=== PATIENT | male | born 1945 | race Caucasian/White ===

== ENCOUNTER 2018-08-29 11:35 | Inpatient (IN) | payer MEDICARE, OTHER ==
[~2018-08-29] VITALS: Ht 188 cm; Wt 102.0 kg
[~2018-08-29 11:35] MED LIST: ALLO300T2 PO; AMLO-362 PO; ASPI-611 PO; ATOR10TA87 PO; CHOL100040 PO; MAGN250T29 PO; atropine 0.1mg/ml 10ml syringe ONE
[2018-08-29] MEDS ORDERED: atropine 1 MG/1 ML vial IV ONE (11:45)
[2018-08-29] MEDS ORDERED: normal saline 1000ML IV soln IVB ONE (11:45)
[2018-08-29 12:05] LABS: BASOPHILS % (AUTO) 0.5 % (0-1); EOSINOPHILS # (AUTO) 0.1 X10'3 (0-0.9); EOSINOPHILS % (AUTO) 1.2 % (0-6); HEMATOCRIT 38.1 % (42.0-52.0); HEMOGLOBIN 12.8 g/dl (14.0-17.9); LYMPHOCYTES # (AUTO) 0.9 X10'3 (1.1-4.8); LYMPHOCYTES % (AUTO) 14.2 % (21-51); MEAN CORPUSCULAR HEMOGLOBIN 33.6 PG (27.0-31.0); MEAN CORPUSCULAR HGB CONC 33.7 g/dL (33.0-36.5); MEAN CORPUSCULAR VOLUME 99.8 FL (78-98); MEAN PLATELET VOLUME 9.5 FL (7.4-10.4); MONOCYTES # (AUTO) 0.4 X10'3 (0-0.9); MONOCYTES % (AUTO) 6.9 % (2-12); NEUTROPHILS # (AUTO) 4.7 X10'3 (1.8-7.7); NEUTROPHILS % (AUTO) 77.2 % (42-75); PLATELET COUNT 137 X10'3 (140-440); RED BLOOD COUNT 3.82 X10'6 (4.70-6.10); RED CELL DISTRIBUTION WIDTH 14.6 % (11.5-14.5); WHITE BLOOD COUNT 6.1 X10'3 (4.5-11.0)
--- NOTE | 2018-08-29 12:07 | NUR ---
no change from atropine,[place] 27bpm palp,Dr. Del Valle made aware,said she contacted Dr. Capellan.
[2018-08-29 12:20] LABS: ALANINE AMINOTRANSFERASE 112 U/L (12-78); ALBUMIN 3.4 G/DL (3.4-5.0); ALBUMIN/GLOBULIN RATIO 1.1 (1.1-1.5); ALKALINE PHOSPHATASE 67 IU/L (46-116); ANION GAP 6 (8-16); ASPARTATE AMINO TRANSFERASE 56 U/L (10-37); BILIRUBIN,TOTAL 0.7 MG/DL (0.1-1.0); BLOOD UREA NITROGEN 28 MG/DL (7-18); BUN/CREATININE RATIO 18.5 (5.4-32.0); CALCIUM 8.8 MG/DL (8.5-10.1); CHLORIDE 109 MMOL/L (99-107); CREATININE 1.51 MG/DL (0.60-1.10); GLUCOSE 93 MG/DL (70-104); POTASSIUM 4.2 MMOL/L (3.5-5.1); SODIUM 141 MMOL/L (135-145); TOTAL PROTEIN 6.5 G/DL (6.4-8.2); eGFR 45 ML/MIN
[2018-08-29 12:23] LABS: INR 1.1 INR; PARTIAL THROMBOPLASTIN TIME 28 SECONDS (22-32)
--- NOTE | 2018-08-29 12:28 | NUR ---
1245DR. LEE SPOKE TO DR. RIOS ABOUT THIS PT..... MECHANIC CALLED AND STATED THAT THEY PICKING PT UP AT 1245
[2018-08-29] MEDS ORDERED: ATOR40TA72 PO (12:33)
[2018-08-29] MEDS ORDERED: cefazolin/dext.iso 2gm/100ml 100 ML IV ONE ×2 (13:00→13:38)
[2018-08-29] MEDS ORDERED: CARV3.122 PO (13:10)
[2018-08-29] MEDS: normal saline 1000ml 1,000 ML IV SCH ×2 (13:19→23:36)
[2018-08-29] MEDS ORDERED: morphine 2 MG/ML inj. syringe IV PRN ×2 (13:20→22:10)
[2018-08-29] MEDS ORDERED: HYDROcodone/acetaminophen 5mg/325mg tablet PO PRN (13:20)
[2018-08-29] MEDS ORDERED: magnesium hydroxide 30ml (MOM) UD suspension PO PRN (13:20)
[2018-08-29] MEDS ORDERED: mag hydrox/Alum hydrox/simeth 30ml oral suspension PO PRN (13:20)
[2018-08-29] MEDS ORDERED: ondansetron/PF 4mg/2ml inj IV PRN (13:20)
[2018-08-29] MEDS ORDERED: acetaminophen 325mg tablet PO PRN (13:20)
[2018-08-29] MEDS ORDERED: fentaNYL/PF 50MCG/1 ML 2ML syringe ONE (13:42)
[2018-08-29] MEDS ORDERED: midazolam 2 mg/2 ml injection ONE (13:43)
[2018-08-29] MEDS ORDERED: lidocaine 1%/epinephrine 1:100,000 injection 50ml vial ONE (13:43)
[2018-08-29] MEDS ORDERED: ceFAZolin 1000mg inj ONE (14:00)
--- NOTE | 2018-08-29 15:02 | NUR ---
Rec patient from rn cardiac cath in stable condition. Transferred to bed from [facility]. left arm in sling with dressing over pacemaker site. Clean dry and intact. Pt awake, alert and oriented. vss. Enc'd deep breathing, sats 91-92%. Given ice chips and some water. Missing his belongings, call placed to [facility] in rn cardiac cath, stated he would look for them. Iv ancef hanging on arrival, will finish infusing. New orders noted.
[2018-08-29 15:05] VITALS: BP 176/77
[2018-08-29 15:30] VITALS: BP 171/80
[2018-08-29] MEDS ORDERED: hydrALAZINE 20mg/ml inj. IV PRN (17:05)
[2018-08-29 17:45] VITALS: BP 165/94
--- NOTE | 2018-08-29 18:03 | NUR ---
Belongings in room and pt reports all there. Having difficulty urinating, up to bathroom and feels bladder is becoming full. Will obtain st cath order if necessary.
[2018-08-29 19:00] VITALS: BP 168/94
--- NOTE | 2018-08-29 19:45 | NUR ---
bladder scan showed 750cc. Pt unable to void. Straight cath- 700cc out
[2018-08-29] MEDS ORDERED: cephalexin 500mg capsule PO SCH (20:00)
[2018-08-29] MEDS: ceFAZolin 1GM/D5W- ADD-VANTAGE 50 ML IV SCH (22:02)
[2018-08-29] MEDS: HYDROcodone/acetaminophen 10/325mg tab PO PRN (22:42)
[2018-08-29 23:00] VITALS: BP 157/85
[2018-08-30 03:00] VITALS: BP 160/83
[2018-08-30] MEDS: HYDROcodone/acetaminophen 10/325mg tab PO PRN (04:17)
[2018-08-30] MEDS: ceFAZolin 1GM/D5W- ADD-VANTAGE 50 ML IV SCH (05:59)
[2018-08-30 06:00] VITALS: BP 126/81
--- NOTE | 2018-08-30 06:41 | NUR ---
Patient in room U 3024. I have received report from TIANA Cloud and had the opportunity to ask questions and assume patient care. Addendum: 08/30/18 at 0642 by Gavin Singer RN report from TIANA Hernandez
[2018-08-30] MEDS ORDERED: CEPH500C5 PO (07:30)
[2018-08-30] MEDS ORDERED: carvedilol 6.25mg tablet PO SCH (08:00)
[2018-08-30] MEDS ORDERED: enoxaparin 40mg/0.4ml syringe SUBCUT SCH (08:00)
[2018-08-30] MEDS ORDERED: CARV6.253 PO (10:16)
[2018-08-30 11:00] VITALS: BP 158/82
--- NOTE | 2018-08-30 11:08 | NUR ---
IV and tele are out. All patient DC papers and education done. Just waiting for to pick him up. Addendum: 08/30/18 at 1121 by Gavin Singer RN educated to take pulse and BP for beta-zully
--- NOTE | 2018-08-30 11:16 | NUR ---
Meds called in to [facility].
[2018-08-30] MEDS ORDERED: lisinopril 10 MG tablet PO SCH (21:00)
== END 2018-08-30 11:15 | disposition home or self-care (01) | DRG 226 ==
LOC: ER 11:36 → ED HOLD 13:54 → PCU 3S 14:56 → CMPBEDREQ 19:31
PROVIDERS: ADMIT Family Medicine; ATTEND Family Medicine
PROC: 0JH609Z Insertion of Cardiac Resynchronization Defibrillator Pulse Generator into Chest Subcutaneous Tissue and Fascia, Open Approach (ICD-10-PCS; principal; 2018-08-29)
PROC: 02HK3KZ Insertion of Defibrillator Lead into Right Ventricle, Percutaneous Approach (ICD-10-PCS; 2018-08-29)
PROC: 02H63KZ Insertion of Defibrillator Lead into Right Atrium, Percutaneous Approach (ICD-10-PCS; 2018-08-29)
DX: I44.2 Atrioventricular block, complete (principal); I21.A1 Myocardial infarction type 2; I42.9 Cardiomyopathy, unspecified; I50.22 Chronic systolic (congestive) heart failure; I25.10 Atherosclerotic heart disease of native coronary artery without angina pectoris; I11.0 Hypertensive heart disease with heart failure; E78.00 Pure hypercholesterolemia, unspecified; E78.5 Hyperlipidemia, unspecified; G47.33 Obstructive sleep apnea (adult) (pediatric); M10.9 Gout, unspecified; Z95.0 Presence of cardiac pacemaker; Z79.82 Long term (current) use of aspirin; Z86.73 Personal history of transient ischemic attack (TIA), and cerebral infarction without residual deficits
CPT/HCPCS: 33249; 36415; 71045; 80053; 83880; 84443; 84484; 85025; 85610; 85730; 93005; 93306; 96361; 96374; 99152; 99153; 99291; A4565; A4620; C1721; C1785; C1895; G0378; J0360; J0461; J0690; J2250; J2270; J2405; J3010; J3490; J7030

== ENCOUNTER 2020-06-04 15:05 | Emergency (ER) | payer MEDICARE, OTHER ==
[~2020-06-04] VITALS: Ht 185.4 cm; Wt 100.0 kg
[~2020-06-04 15:05] MED LIST changes: -AMLO-362 PO; -ATOR10TA87 PO; +ATOR40TA72 PO; +CARV6.253 PO; -CHOL100040 PO; -MAGN250T29 PO; -atropine 0.1mg/ml 10ml syringe ONE
[2020-06-04 16:23] VITALS: BP 166/99
[2020-06-04 16:35] LABS: BASOPHILS % (AUTO) 0.1 % (0-1); EOSINOPHILS % (AUTO) 0 % (0-6); HEMATOCRIT 45.7 % (42.0-52.0); HEMOGLOBIN 15.2 g/dl (14.0-17.9); LYMPHOCYTES # (AUTO) 0.7 X10'3 (1.1-4.8); LYMPHOCYTES % (AUTO) 6.8 % (21-51); MEAN CORPUSCULAR HEMOGLOBIN 33.2 PG (27.0-31.0); MEAN CORPUSCULAR HGB CONC 33.3 g/dL (33.0-36.5); MEAN CORPUSCULAR VOLUME 99.9 FL (78-98); MONOCYTES # (AUTO) 0.5 X10'3 (0-0.9); MONOCYTES % (AUTO) 5.1 % (2-12); NEUTROPHILS # (AUTO) 8.9 X10'3 (1.8-7.7); PLATELET COUNT 183 X10'3 (140-440); RED BLOOD COUNT 4.58 X10'6 (4.70-6.10); RED CELL DISTRIBUTION WIDTH 13.9 % (11.5-14.5); WHITE BLOOD COUNT 10.1 X10'3 (4.5-11.0)
[2020-06-04 16:46] LABS: ALANINE AMINOTRANSFERASE 20 U/L (12-78); ALBUMIN 4.5 G/DL (3.4-5.0); ALBUMIN/GLOBULIN RATIO 1.1 (1.1-1.5); ALKALINE PHOSPHATASE 50 IU/L (46-116); ANION GAP 14 (8-16); ASPARTATE AMINO TRANSFERASE 22 U/L (10-37); BILIRUBIN,TOTAL 1.1 MG/DL (0.1-1.0); BLOOD UREA NITROGEN 16 MG/DL (7-18); BUN/CREATININE RATIO 11.3 (5.4-32.0); CALCIUM 9.3 MG/DL (8.5-10.1); CHLORIDE 109 MMOL/L (99-107); CREATININE 1.41 MG/DL (0.60-1.10); GLUCOSE 118 MG/DL (70-104); SODIUM 146 MMOL/L (135-145); TOTAL CARBON DIOXIDE 23.3 MMOL/L (24-32); TOTAL PROTEIN 8.5 G/DL (6.4-8.2); eGFR 49 ML/MIN
[2020-06-04 16:47] LABS: POTASSIUM 4.2 MMOL/L (3.5-5.1)
[2020-06-04 16:48] LABS: CLARITY,URINE SLIGHTLY CLOUDY (Clear); COLOR,URINE YELLOW (Yellow); GLUCOSE, URINE NEGATIVE (Neg); KETONES,URINE NEGATIVE (Neg); LEUKOCYTE ESTERASE ,URINE NEGATIVE (Neg); NITRITES, URINE NEGATIVE (Neg); OCCULT BLOOD,URINE LARGE (Neg); PROTEIN,URINE NEGATIVE (Neg); UROBILINOGEN,URINE 0.2 E.U/dL (0.2-1.0)
[2020-06-04 16:49] LABS: UA COLLECTION TYPE FOLEY CATH
[2020-06-04 17:00] LABS: MUCUS STRANDS MANY /LPF (Neg); SQUAMOUS EPITHELIAL CELL,UR NONE SEEN /LPF (FEW)
[2020-06-04 17:01] LABS: RBC,URINE 50-100 /HPF (0-2)
[2020-06-04 17:02] LABS: BACTERIA,URINE NONE SEEN /HPF (Neg); WBC,URINE 0-4 /HPF (0-4)
[2020-06-04] MEDS ORDERED: FLO0.4C PO (17:19)
== END 2020-06-04 17:37 | disposition home or self-care (01) ==
LOC: ER 15:06
DX: R33.9 Retention of urine, unspecified (principal); R10.2 Pelvic and perineal pain; R10.30 Lower abdominal pain, unspecified; E78.00 Pure hypercholesterolemia, unspecified; I10 Essential (primary) hypertension; Z72.89 Other problems related to lifestyle; Z79.82 Long term (current) use of aspirin; Z79.899 Other long term (current) drug therapy
CPT/HCPCS: 36415; 51702; 80053; 81001; 85025; 99284

== ENCOUNTER 2022-11-04 23:25 | Emergency (ER) | payer MEDICARE, OTHER ==
[~2022-11-04] VITALS: Ht 188 cm; Wt 110.9 kg
[2022-11-05 00:01] LABS: BASOPHILS % (AUTO) 0.1 % (0-1); EOSINOPHILS % (AUTO) 0 % (0-6); HEMATOCRIT 38.7 % (42.0-52.0); HEMOGLOBIN 13.3 g/dl (14.0-17.9); LYMPHOCYTES # (AUTO) 0.3 X10'3 (1.1-4.8); MEAN CORPUSCULAR HEMOGLOBIN 33.5 PG (27.0-31.0); MEAN CORPUSCULAR HGB CONC 34.3 g/dL (33.0-36.5); MEAN CORPUSCULAR VOLUME 97.7 FL (78-98); MEAN PLATELET VOLUME 8.5 FL (7.4-10.4); MONOCYTES # (AUTO) 1.1 X10'3 (0-0.9); MONOCYTES % (AUTO) 9.8 % (2-12); NEUTROPHILS # (AUTO) 9.5 X10'3 (1.8-7.7); NEUTROPHILS % (AUTO) 87.1 % (42-75); PLATELET COUNT 114 X10'3 (140-440); RED BLOOD COUNT 3.96 X10'6 (4.70-6.10); RED CELL DISTRIBUTION WIDTH 13.6 % (11.5-14.5); WHITE BLOOD COUNT 10.9 X10'3 (4.5-11.0)
[2022-11-05 00:15] LABS: ALANINE AMINOTRANSFERASE 23 U/L (12-78); ALBUMIN 3.4 G/DL (3.4-5.0); ALBUMIN/GLOBULIN RATIO 0.8 (1.1-1.5); ALKALINE PHOSPHATASE 40 IU/L (46-116); ANION GAP 14 (8-16); ASPARTATE AMINO TRANSFERASE 30 U/L (10-37); BILIRUBIN,TOTAL 1.3 MG/DL (0.1-1.0); BLOOD UREA NITROGEN 28 MG/DL (7-18); BUN/CREATININE RATIO 18.2 (10.0-20.0); CALCIUM 8.8 MG/DL (8.5-10.1); CHLORIDE 103 MMOL/L (99-107); CREATININE 1.54 MG/DL (0.60-1.10); GLUCOSE 169 MG/DL (70-104); POTASSIUM 3.5 MMOL/L (3.5-5.1); SODIUM 138 MMOL/L (135-145); TOTAL CARBON DIOXIDE 20.7 MMOL/L (24-32); TOTAL PROTEIN 7.7 G/DL (6.4-8.2); eGFR 44 ML/MIN
[2022-11-05 00:55] LABS: CLARITY,URINE CLOUDY (Clear); COLOR,URINE YELLOW (Yellow); GLUCOSE, URINE NEGATIVE (Neg); KETONES,URINE TRACE mg/dl (Neg); LEUKOCYTE ESTERASE ,URINE TRACE (Neg); NITRITES, URINE NEGATIVE (Neg); OCCULT BLOOD,URINE MODERATE (Neg); PROTEIN,URINE 100 mg/dl (Neg)
[2022-11-05 01:02] LABS: UA COLLECTION TYPE CLN CATCH MIDSTREAM
[2022-11-05 01:03] LABS: MUCUS STRANDS MANY /LPF (Neg)
[2022-11-05 01:04] LABS: FINE GRANULAR CAST 0-3 /LPF (NEGATIVE); HYALINE CASTS 0-3 /LPF (NEGATIVE)
[2022-11-05 01:05] LABS: WBC,URINE 50-100 /HPF (0-4)
[2022-11-05 01:06] LABS: BACTERIA,URINE 1+ /HPF (Neg); WBC CLUMPS,URINE FEW /HPF (NEGATIVE)
[2022-11-05 01:07] LABS: AMORPHOUS URATES 1+; COARSE GRANULAR CAST 0-3 /LPF (NEGATIVE); SQUAMOUS EPITHELIAL CELL,UR FEW /LPF (FEW)
[2022-11-05] MEDS ORDERED: CEPH-585 PO (01:52)
[2022-11-05] MEDS ORDERED: cephalexin 250mg capsule PO ONE (02:00)
[2022-11-05] MEDS ORDERED: LIDO1ADH74 TD (02:03)
[2022-11-05 02:05] VITALS: BP 132/68
[2022-11-05] MEDS ORDERED: LIDOcaine 5% patch TP ONE (09:00)
== END 2022-11-05 02:21 | disposition home or self-care (01) ==
LOC: ER 23:26
DX: R07.81 Pleurodynia (principal); N39.0 Urinary tract infection, site not specified; R41.82 Altered mental status, unspecified; E78.00 Pure hypercholesterolemia, unspecified; I10 Essential (primary) hypertension; Z79.899 Other long term (current) drug therapy; Z79.1 Long term (current) use of non-steroidal anti-inflammatories (NSAID); Z79.2 Long term (current) use of antibiotics
CPT/HCPCS: 36415; 70450; 71045; 71100; 80053; 81001; 82140; 83880; 84484; 85025; 85610; 93005; 99285